=== PATIENT | male | born 1975 | race Native Hawaiian/Other Pacific Islander ===

== ENCOUNTER 2023-07-10 16:36 | Outpatient (CLI) | payer BC | END 2023-07-10 20:30 | disposition home or self-care (01) | LOC: CT 16:36 → LABW 16:36 → CT 20:30 | PROVIDERS: ATTEND Internal Medicine | DX: R06.02 Shortness of breath (principal); R06.09 Other forms of dyspnea; R03.0 Elevated blood-pressure reading, without diagnosis of hypertension; R00.0 Tachycardia, unspecified | CPT/HCPCS: 36415; 82565; Q9963 ==